=== PATIENT | female | born 1960 ===

== ENCOUNTER → 2017-10-05 10:32 | Outpatient (CLI) | payer OTHER ==
[~2017-10-05] VITALS: Ht 152.4 cm; Wt 120.2 kg
[~2017-10-05 10:32] MED LIST: ASPIRIN81 M1; CATAFLAM50 MG PO; FIORICET 50-301 EACH PO; HYZAAR 100/25 T1 TAB; LEVSIN/SL0.125 MG PO; NEURONTIN300 MG; SINGULAIR10 MG; [UNRECOGNIZED DRUG - OTHER]
== END | disposition home or self-care (01) ==
LOC: PPHC 10:32
DX: Z00.00 Encounter for general adult medical examination without abnormal findings (principal)